=== PATIENT | female | born 1995 | race Caucasian/White ===

== ENCOUNTER → 2016-09-17 | Outpatient (CLI) | payer BC, OTHER ==
--- NOTE | 2016-09-17 16:39 | Diagnostic Imaging Report ---
PROCEDURE: MRI right joint lower extremity without contrast. TECHNIQUE: Multiplanar, multisequence non contrast-enhanced MRI of the right lower extremity was accomplished. INDICATION: Posterior right knee pain. COMPARISON: There are no prior studies available for comparison. FINDINGS: On the proton-dense sagittal images, there is no abnormal signal arising from either meniscus to indicate a tear. The anterior and posterior cruciate ligaments, the quadriceps and the infrapatellar tendons, the collateral ligaments, the biceps femoris tendon, and the iliotibial band are intact. There is no sign of an injury to either the medial or lateral retinaculum. However, on the T2 axial series, there is increased signal involving the inferolateral aspect of the patella. I suspect that this is related to bone edema from recent trauma. There is no other abnormal signal arising from the osseous structures to suggest bone edema or a fracture. The knee joint itself is well maintained. There is only a small amount of fluid within the knee joint. This may well be physiologic in nature. There is no sign of a Beck's cyst. IMPRESSION: 1. There is no evidence for a tear of either meniscus. 2. The major ligaments and tendons are intact. 3. There is a small area of bone edema involving the inferolateral aspect of the patella. Most likely, this is related to recent trauma. 4. There is no significant joint effusion present, and there is no evidence for a Beck's cyst. Dictated by: Dictated on workstation # [id number]
== END ==
LOC: RAD 15:31
PROVIDERS: ATTEND Orthopaedic Surgery
DX: M22.41 Chondromalacia patellae, right knee (principal)
CPT/HCPCS: 73721

== ENCOUNTER → 2016-11-14 | Outpatient (CLI) | payer BC, OTHER ==
--- NOTE | 2016-11-14 16:30 | Diagnostic Imaging Report ---
PROCEDURE: MRI left upper extremity without contrast. TECHNIQUE: Multiplanar, multisequence non contrast-enhanced MRI of the left thumb was accomplished. INDICATION: Left thumb pain. COMPARISON: None available. FINDINGS: A marker was placed by the patient on the thumb to demarcate the area of maximal pain. This marker was placed on the palmar aspect of the thenar eminence. Deep to the marker, the thenar musculature is normal in bulk and signal without evidence of strain. Flexor pollicis longus and brevis tendons are normal. There is no edema around the flexor pollicis longus tendon to suggest estela injury of the thumb. Extensor mechanism of the thumb is also normal. The ulnar and radial collateral ligaments of the thumb MCP joint are intact. No synovitis within the thumb IP, MCP or CMC joint. No fracture or bone contusion. Visualized aspects of the carpal tunnel are normal. Additional extensor tendons of the digits that are partially visualized are normal. IMPRESSION: 1. No muscle strain or myotendinous abnormality to explain patient's thumb pain. 2. No injury of the thumb MCP ulnar collateral or radial collateral ligaments. 3. No fracture or bone contusion. Dictated by: Dictated on workstation # [id number]
== END ==
LOC: RAD 14:47
PROVIDERS: ATTEND Orthopaedic Surgery
DX: M79.642 Pain in left hand (principal)
CPT/HCPCS: 73218

== ENCOUNTER → 2017-08-22 | Outpatient (CLI) | payer BC, OTHER ==
--- NOTE | 2017-08-22 11:35 | Diagnostic Imaging Report ---
EXAMINATION: Magnetic resonance imaging of the right ankle without contrast. DATE: August 22, 2017. COMPARISON: None. HISTORY: 21-year-old female, right ankle pain. History of injury playing basketball approximately 4 weeks ago with persistent ankle pain. TECHNIQUE: Magnetic Resonance Imaging sequences were performed of the ankle without contrast. [< >] FINDINGS: TENDONS AND LIGAMENTS: The Achilles tendon is unremarkable. The posterior flexor tendons - tibialis posterior, flexor digitorum longus, flexor hallucis longus - are intact. The peroneal tendons - peroneus longus and peroneus brevis - are intact. The anterior extensor tendons - tibialis anterior, extensor hallucis longus and extensor digitorum longus tendons - are intact. The anterior and posterior syndesmotic ligaments are intact. The anterior talofibular, posterior talofibular, and calcaneofibular ligaments are intact. There is a complete or near-complete tear of the deep deltoid ligament from its talar attachment. There is low-level marrow edema in the subjacent talus compatible with low-grade contusion relating to the ligamentous injury. The plantar fascia is intact. JOINTS: The ankle mortise is intact. There is no large joint effusion. BONE: The bones all have normal configuration. There is low-level marrow edema in the proximal and dorsal aspect of the cuboid which may reflect a low-level bone contusion. There is very low-level edema in the region of the medial malleolus compatible with bone contusion. The additional bone marrow signal is unremarkable. The talar dome is intact. BURSAE AND SOFT TISSUES: The bursae and soft tissues surrounding the ankle are unremarkable. IMPRESSION: 1. Complete or near-complete tear of the deep deltoid ligament from its talar attachment with adjacent low-level marrow edema in the talus likely relating to bone contusion associated with the ligamentous injury. 2. Intact syndesmotic ligaments. Intact anterior talofibular, posterior talofibular, and calcaneofibular ligaments. 3. Intact talar dome. 4. Marrow edema in the proximal and dorsal aspect of the cuboid likely relating to low-grade bone contusion. Bone contusion of the medial malleolus. 5. No identified acute fracture. Dictated by: Dictated on workstation # [id number]
== END ==
LOC: RAD 10:00
PROVIDERS: ATTEND Orthopaedic Surgery
DX: S93.421A Sprain of deltoid ligament of right ankle, initial encounter (principal); Y93.67 Activity, basketball
CPT/HCPCS: 73721